=== PATIENT | female | born 1950 | race African-American/Black ===

== ENCOUNTER 2020-03-01 09:30 | Observation (INO) | payer MEDICARE ==
--- NOTE | 2020-03-01 09:47 | ED ---
Chest Pain HPI - General Chief Complaint: Chest Pain Stated Complaint: Chest Pain Time Seen by Provider: 03/01/20 09:35 Source: patient, EMS Mode of arrival: EMS Limitations: no limitations - History of Present Illness Initial Comments: This is a 70-year-old female presents emergency department via EMS chief complaint of bilateral shoulder pain. Patient states that this was a sudden onset of pain. Patient states that she took nitro which immediately alleviated her symptoms. She states his exact symptoms that she had when she had her prior cardiac issues. Patient states at this time she has been placed in 2008. Patient does admit that she is currently being treated for lung cancer on chemo and radiation. Patient also is taking Coumadin because she had a prior clot causing loss of her kidney. Patient denies any diaphoretic episodes, increased redness breath, nausea vomiting no leg pain or leg swelling no swelling of her upper extremities. Patient currently symptom-free. She was given aspirin by EMS. - Related Data Allergies Allergy/AdvReac Type Severity Reaction Status Date / Time ciprofloxacin [From Cipro] Allergy Swelling Verified 03/01/20 10:54 levofloxacin [From Levaquin] Allergy Swelling Verified 03/01/20 10:54 codeine AdvReac Nausea & Verified 03/01/20 10:54 Vomiting lisinopril AdvReac Cough Verified 03/01/20 10:54 Review of Systems ROS Statement: Those systems with pertinent positive or pertinent negative responses have been documented in the HPI. ROS Other: All systems not noted in ROS Statement are negative. EKG Findings - EKG Comments: EKG Findings:: EKG performed at 10:00 normal sinus rhythm rate of 66 MI 146 QRS 70 QT/QTC 430/459 Past Medical History Past Medical History: Coronary Artery Disease (CAD), Cancer, COPD, Hyperlipidemia, Hypertension Additional Past Medical History / Comment(s): lung CA on chemo and radiation History of Any Multi-Drug Resistant Organisms: None Reported Past Surgical History: Appendectomy, Cholecystectomy, Heart Catheterization With Stent, Hysterectomy, Tonsillectomy Past Psychological History: Anxiety, Depression Smoking Status: Current every day smoker Past Alcohol Use History: None Reported Past Drug Use History: None Reported General Exam Limitations: no limitations General appearance: alert, in no apparent distress Head exam: Present: atraumatic, normocephalic, normal inspection Eye exam: Present: normal appearance, PERRL, EOMI. Absent: scleral icterus, conjunctival injection, periorbital swelling ENT exam: Present: normal exam, normal oropharynx, mucous membranes moist Neck exam: Present: normal inspection, full ROM. Absent: tenderness, meningismus, lymphadenopathy Respiratory exam: Present: normal lung sounds bilaterally. Absent: respiratory distress, wheezes, rales, rhonchi, stridor Cardiovascular Exam: Present: regular rate, normal rhythm, normal heart sounds. Absent: systolic murmur, diastolic murmur, rubs, gallop, clicks GI/Abdominal exam: Present: soft, normal bowel sounds. Absent: distended, tenderness, guarding, rebound, rigid Neurological exam: Present: alert, oriented X3 Skin exam: Present: warm, dry, intact, normal color. Absent: rash Course Vital Signs 03/01/20 09:31 Temperature 98.2 F Pulse Rate 68 Respiratory 22 Rate Blood Pressure 142/61 O2 Sat by Pulse 97 Oximetry Chest Pain MDM - MDM 70-year-old presented for chest pain workup at this time is negative INR is 2.0 patient is on Coumadin. Patient will be admitted for cardiac history is a significant cardiac history. Disposition Clinical Impression: Anginal equivalent Disposition: ADMITTED IP TO THIS HOSP Condition: Fair Referrals: Nonstaff,Physician [REFERRING] - 1-2 days
[2020-03-01 10:02] LABS: HCT 34.1 % (34.0-46.0); HGB 11.5 gm/dL (11.4-16.0); MCH 29.1 pg (25.0-35.0); MCHC 33.8 g/dL (31.0-37.0); MCV 86.1 fL (80.0-100.0); Mean Platelet Volume 8.5; Platelet Count 117 k/uL (150-450); RBC 3.96 m/uL (3.80-5.40); RDW 12.9 % (11.5-15.5); WBC 3.6 k/uL (3.8-10.6)
[2020-03-01 10:26] LABS: Prothrombin Time 29.2 sec (9.0-12.0)
[2020-03-01 10:27] LABS: Albumin 3.9 g/dL (3.5-5.0); Magnesium 1.8 mg/dL (1.6-2.3); Potassium 4.5 mmol/L (3.5-5.1); Total Bilirubin 0.4 mg/dL (0.2-1.3); Total Protein 6.7 g/dL (6.3-8.2)
--- NOTE | 2020-03-01 10:28 | XR ---
EXAMINATION TYPE: XR chest 2V DATE OF EXAM: 03/01/2020 COMPARISON: NONE HISTORY: Shortness of breath TECHNIQUE: Frontal and lateral views of the chest are obtained. FINDINGS: Scattered senescent parenchymal changes noted. Hyperinflation compatible with COPD. No evidence for infiltrate. No evidence for atelectasis. Heart size is stable. Mediastinal structures are stable and grossly unremarkable. No evidence for hilar prominence. Degenerative changes dorsal spine. IMPRESSION: 1. No evidence for acute pulmonary disease.
[2020-03-01 10:36] LABS: Band Neutrophils % 5 %; Eosinophils # (M) 0.11 k/uL (0-0.7); Lymphocytes # (M) 1.26 k/uL (1.0-4.8); Metamyelocytes # (M) 0.11 k/uL (0); Metamyelocytes % 3 %; Myelocytes # (M) 0.07 k/uL (0); Myelocytes % 2 %; Neutrophils % (M) 29 %; Nucleated Red Blood Cells 0 /100 WBC (0-0); Total Cells Counted 200
[2020-03-01] MEDS ORDERED: NITROGLYCERIN SL TABS 0.4 MG TAB SUBLINGUAL PRN (11:11)
[2020-03-01] MEDS ORDERED: HYDROcodone/APAP 7.5-325MG 1 EACH TAB PO PRN (13:34)
[2020-03-01] MEDS ORDERED: ALPRAZolam 0.25 MG TAB PO PRN (13:34)
--- NOTE | 2020-03-01 14:02 | P.CRDCN ---
History of Present Illness History of present illness: HISTORY OF PRESENTING ILLNESS This is a pleasant 70-year-old female past medical history significant for coronary artery disease status post PCI in 2008, COPD, dyslipidemia, hypert ension, paroxysmal atrial fibrillation on coumadin and recent diagnosis of lung cancer on chemo and radiation. She unfortunately continues to smoke. She follows in the office with Dr. Barriga. We have been asked to see in consultation for chest pain. She states she woke up this morning in her usual state of health. She got dressed, poured herself a cup of coffee and went on the porch to smoke a cigarette. While she was sitting and she had an acute onset of bilateral arm pain. She states it felt like both forearms were in a vice dance critic. There was no radiation to the chest, back, neck or jaw. Was not associated with shortness of breath, dizziness, nausea, vomiting, diaphoresis or palpitations. She took one sublingual nitroglycerin and her symptoms improved. She has had no further symptoms since that time. She states this is how she felt in 2008 when she needed a stent. At that time she underwent a stress test that was found to be abnormal and subsequently heart catheterization. She recently was diagnosed with lung cancer and has been started on chemo and radiation for the previous 3 weeks. DIAGNOSTICS EKG reveals sinus mechanism with flattened T waves inferiorly. Chest xray negative for acute cardiopulmonary process. Laboratory reviewed, WBC 3.6, hemoglobin 11.5, platelets 117, INR 3.0, sodium 136, potassium 4.5, creatinine 0.79, cardiac enzymes negative 2, NT proBNP 390. Current cardiac medications include atorvastatin 40 mg Lopid 600 mg twice a day, losartan 25 mg daily, amlodipine 5 mg daily and Coumadin. REVIEW OF SYSTEMS At the time of my exam: CONSTITUTIONAL: Denies fever or chills. CARDIOVASCULAR: Denies chest pain, shortness of breath, orthopnea, PND or palpitations. RESPIRATORY: Denies cough. GASTROINTESTINAL: Denies abdominal pain, diarrhea, constipation, nausea or vomiting. MUSCULOSKELETAL: Denies myalgias. NEUROLOGIC: Denies numbness, tingling or weakness. ENDOCRINE: Denies fatigue, weight change, polydipsia or polyurina. GENITOURINARY: Denies burning, hematuria or urgency with micturation. HEMATOLOGIC: Denies history of anemia or bleeding. PHYSICAL EXAMINATION Blood pressure 140/66 heart rate 65 afebrile and maintaining oxygen saturation on room air. CONSTITUTIONAL: No apparent distress. HEENT: Head is normocephalic. Pupils are equal, round. Sclerae anicteric. Mucous membranes of the mouth are moist. No JVD. No carotid bruit. CHEST EXAMINATION: Lungs are clear to auscultation. No chest wall tenderness is noted on palpation or with deep breathing. HEART EXAMINATION: Regular rate and rhythm. S1, S2 heard. Systolic ejection m urmur at the left sternal border, no gallops or rub. ABDOMEN: Soft, nontender. Positive bowel sounds. EXTREMITIES: 2+ peripheral pulses, no lower extremity edema and no calf tenderness. NEUROLOGIC EXAMINATION: Patient is awake, alert and oriented x3. ASSESSMENT Chest pain, atypical for angina. Coronary artery disease status post PCI in 2008 Paroxysmal atrial fibrillation on long-term anticoagulation with Coumadin Lung cancer currently undergoing chemo and radiation Dyslipidemia Hypertension Chronic nicotine dependence PLAN Continue to obtain serial enzymes to rule out an acute event. Obtain 2-D echocardiogram and Doppler study to assess cardiac structure and function. Request records from her primary airline ticket agent of her previous cardiac catheterization. Further recommendations to follow based upon clinical course. Thank you kindly for this consultation. Nurse Practitioner note has been reviewed, I agree with a documented findings and plan of care. Patient was seen and examined. Past Medical History Past Medical History: Coronary Artery Disease (CAD), Cancer, COPD, Hyperlipidemia, Hypertension Additional Past Medical History / Comment(s): lung CA on chemo and radiation History of Any Multi-Drug Resistant Organisms: None Reported Past Surgical History: Appendectomy, Cholecystectomy, Heart Catheterization With Stent, Hysterectomy, Tonsillectomy Past Psychological History: Anxiety, Depression Smoking Status: Current every day smoker Past Alcohol Use History: None Reported Past Drug Use History: None Reported Medications and Allergies Home Medications Medication Instructions Recorded Confirmed Type ALPRAZolam [Xanax] 0.25 - 0.5 mg PO BID PRN 03/01/20 03/01/20 History Atorvastatin [Lipitor] 40 mg PO DAILY 03/01/20 03/01/20 History FLUoxetine HCL [PROzac] 40 mg PO DAILY 03/01/20 03/01/20 History Famotidine [Pepcid] 20 mg PO BID 03/01/20 03/01/20 History Gemfibrozil [Lopid] 600 mg PO BID 03/01/20 03/01/20 History Hydrocodone/Acetaminophen [[place] 1 tab PO Q6HR PRN 03/01/20 03/01/20 History 7.5-325] Losartan Potassium [Cozaar] 25 mg PO DAILY 03/01/20 03/01/20 History Pantoprazole Sodium [Protonix] 40 mg PO DAILY 03/01/20 03/01/20 History Sulfamethoxazole/Trimethoprim 1 tab PO Q12H 03/01/20 03/01/20 History [Bactrim DS 800-160 mg] Warfarin [Coumadin] 5 - 7.5 mg PO DIRECTED 03/01/20 03/01/20 History amLODIPine [Norvasc] 5 mg PO DAILY 03/01/20 03/01/20 History Allergies Allergy/AdvReac Type Severity Reaction Status Date / Time ciprofloxacin [From Cipro] Allergy Swelling Verified 03/01/20 10:54 levofloxacin [From Levaquin] Allergy Swelling Verified 03/01/20 10:54 codeine AdvReac Nausea & Verified 03/01/20 10:54 Vomiting lisinopril AdvReac Cough Verified 03/01/20 10:54 Physical Exam Vitals: Vital Signs Temp Pulse Resp BP Pulse Ox 03/01/20 12:47 65 18 140/66 97 03/01/20 11:00 62 18 134/65 97 03/01/20 10:30 66 20 138/68 03/01/20 10:00 18 142/61 97 03/01/20 09:31 98.2 F 68 22 142/61 97 Intake and Output 02/29/20 03/01/20 03/01/20 22:59 06:59 14:59 Other: Weight 74.843 kg Results 03/01/20 09:52 03/01/20 09:52 Cardiac Enzymes 03/01/20 03/01/20 03/01/20 Range/Units 09:52 09:52 12:06 AST 30 (14-36) U/L Troponin I <0.012 <0.012 (0.000-0.034) ng/mL Coagulation 03/01/20 Range/Units 09:52 PT 29.2 H (9.0-12.0) sec APTT 36.0 H (22.0-30.0) sec CBC 03/01/20 Range/Units 09:52 WBC 3.6 L (3.8-10.6) k/uL RBC 3.96 (3.80-5.40) m/uL Hgb 11.5 (11.4-16.0) gm/dL Hct 34.1 (34.0-46.0) % Plt Count 117 L (150-450) k/uL Comprehensive Metabolic Panel 03/01/20 Range/Units 09:52 Sodium 136 L (137-145) mmol/L Potassium 4.5 (3.5-5.1) mmol/L Chloride 107 (98-107) mmol/L Carbon Dioxide 20 L (22-30) mmol/L BUN 11 (7-17) mg/dL Creatinine 0.79 (0.52-1.04) mg/dL Glucose 115 H (74-99) mg/dL Calcium 9.0 (8.4-10.2) mg/dL AST 30 (14-36) U/L ALT 16 (4-34) U/L Alkaline Phosphatase 83 (38-126) U/L Total Protein 6.7 (6.3-8.2) g/dL Albumin 3.9 (3.5-5.0) g/dL Current Medications Generic Name Dose Route Start Last Admin Trade Name Freq PRN Reason Stop Dose Admin Hydrocodone Bitart/Acetaminophen 1 each 03/01/20 13:34 [place] 7.5-325 PO Q6HR PRN Pain Alprazolam 0.25 mg 03/01/20 13:34 Xanax PO BID PRN Anxiety Amlodipine Besylate 5 mg 03/02/20 09:00 Norvasc PO DAILY [facility] Aspirin 325 mg 03/02/20 09:00 Aspirin PO DAILY [facility] Atorvastatin Calcium 40 mg 03/02/20 09:00 Lipitor PO DAILY [facility] Famotidine 20 mg 03/01/20 21:00 Pepcid PO BID [facility] Fluoxetine HCl 40 mg 03/02/20 09:00 Prozac PO DAILY [facility] Losartan Potassium 25 mg 03/02/20 09:00 Cozaar PO DAILY [facility] Nitroglycerin 0.4 mg 03/01/20 11:11 Nitrostat SUBLINGUAL Q5M PRN Chest Pain Non-Formulary Medication 600 mg 03/01/20 21:00 Gemfibrozil PO BID [facility] Pantoprazole Sodium 40 mg 03/02/20 07:30 Protonix PO AC-BRKFST MEREDITH Intake and Output 02/29/20 03/01/20 03/01/20 22:59 06:59 14:59 Other: Weight 74.843 kg Patient Weight 03/02/20 06:59 Weight 74.843 kg 03/01/20 09:52 03/01/20 09:52
--- NOTE | 2020-03-01 15:21 | P.HPIM ---
History of Present Illness Patient is pleasant 70-year-old the female with known history of coronary artery disease and stenting in 2008 came in with compensable bilateral shoulder pain patient is similar pain when she had stents. Patient pain is constant non radiating pressure-like sensation, no associated diaphoresis or shortness of breath lightheadedness patient's pain is nonpleuritic not associated with food. Patient denied any short and the shortness of breath orthopnea paroxysmal nocturnal dyspnea. Patient INR is 3, patient says she is on Coumadin for blood clots. Patient was recently diagnosed with lung cancer haven't started on chemoradiation therapy yet. Patient the had history of atrial fibrillation. Troponins are negative EKG showed some nonspecific flattening of her T waves. Review of Systems REVIEW OF SYSTEMS: CONSTITUTIONAL: No fever, no malaise, no fatigue. HEENT: No recent visual problems or hearing problems. Denied any sore throat. CARDIOVASCULAR: No orthopnea, PND, no palpitations, no syncope. PULMONARY: No shortness of breath, no cough, no hemoptysis. GASTROINTESTINAL: No diarrhea, no nausea, no vomiting, no abdominal pain. NEUROLOGICAL: No headaches, no weakness, no numbness. HEMATOLOGICAL: Denies any bleeding or petechiae. GENITOURINARY: Denies any burning micturition, frequency, or urgency. MUSCULOSKELETAL/RHEUMATOLOGICAL: Denies any joint pain, swelling, or any muscle pain. ENDOCRINE: Denies any polyuria or polydipsia. The rest of the 14-point review of systems is negative. Past Medical History Past Medical History: Coronary Artery Disease (CAD), Cancer, COPD, Hyperlipidemia, Hypertension Additional Past Medical History / Comment(s): lung CA on chemo and radiation History of Any Multi-Drug Resistant Organisms: None Reported Past Surgical History: Appendectomy, Cholecystectomy, Heart Catheterization With Stent, Hysterectomy, Tonsillectomy Date of Last Stent Placement:: 2008 Past Psychological History: Anxiety, Depression Smoking Status: Current every day smoker Past Alcohol Use History: None Reported Past Drug Use History: None Reported Medications and Allergies Home Medications Medication Instructions Recorded Confirmed Type ALPRAZolam [Xanax] 0.25 - 0.5 mg PO BID PRN 03/01/20 03/01/20 History Atorvastatin [Lipitor] 40 mg PO DAILY 03/01/20 03/01/20 History FLUoxetine HCL [PROzac] 40 mg PO DAILY 03/01/20 03/01/20 History Famotidine [Pepcid] 20 mg PO BID 03/01/20 03/01/20 History Gemfibrozil [Lopid] 600 mg PO BID 03/01/20 03/01/20 History Hydrocodone/Acetaminophen [[place] 1 tab PO Q6HR PRN 03/01/20 03/01/20 History 7.5-325] Losartan Potassium [Cozaar] 25 mg PO DAILY 03/01/20 03/01/20 History Pantoprazole Sodium [Protonix] 40 mg PO DAILY 03/01/20 03/01/20 History Sulfamethoxazole/Trimethoprim 1 tab PO Q12H 03/01/20 03/01/20 History [Bactrim DS 800-160 mg] Warfarin [Coumadin] 5 - 7.5 mg PO DIRECTED 03/01/20 03/01/20 History amLODIPine [Norvasc] 5 mg PO DAILY 03/01/20 03/01/20 History Allergies Allergy/AdvReac Type Severity Reaction Status Date / Time ciprofloxacin [From Cipro] Allergy Swelling Verified 03/01/20 10:54 levofloxacin [From Levaquin] Allergy Swelling Verified 03/01/20 10:54 codeine AdvReac Nausea & Verified 03/01/20 10:54 Vomiting lisinopril AdvReac Cough Verified 03/01/20 10:54 Physical Exam Vitals: Vital Signs Temp Pulse Pulse Resp BP BP Pulse Ox 03/01/20 13:33 98.1 F 63 16 164/63 97 03/01/20 12:47 65 18 140/66 97 03/01/20 11:00 62 18 134/65 97 03/01/20 10:30 66 20 138/68 03/01/20 10:00 18 142/61 97 03/01/20 09:31 98.2 F 68 22 142/61 97 Intake and Output 03/01/20 03/01/20 03/01/20 06:59 14:59 22:59 Other: Weight 74.843 kg PHYSICAL EXAMINATION: GENERAL: The patient is alert and oriented x3, not in any acute distress. Well developed, well nourished. HEENT: Pupils are round and equally reacting to light. EOMI. No scleral icterus. No conjunctival pallor. Normocephalic, atraumatic. No pharyngeal erythema. No thyromegaly. CARDIOVASCULAR: S1 and S2 present. No murmurs, rubs, or gallops. PULMONARY: Chest is clear to auscultation, no wheezing or crackles. ABDOMEN: Soft, nontender, nondistended, normoactive bowel sounds. No palpable organomegaly. MUSCULOSKELETAL: No joint swelling or deformity. EXTREMITIES: No cyanosis, clubbing, or pedal edema. NEUROLOGICAL: Gross neurological examination did not reveal any focal deficits. SKIN: No rashes. Results CBC & Chem 7: 03/01/20 09:52 03/01/20 09:52 Labs: Abnormal Lab Results - Last 24 Hours (Table) 03/01/20 03/01/20 03/01/20 Range/Units 09:52 09:52 09:52 WBC 3.6 L (3.8-10.6) k/uL Plt Count 117 L (150-450) k/uL Neutrophils # (Manual) 1.20 L (1.3-7.7) k/uL Metamyelocytes # (Man) 0.11 H (0) k/uL Myelocytes # (Manual) 0.07 H (0) k/uL PT 29.2 H (9.0-12.0) sec INR 3.0 H (<1.2) APTT 36.0 H (22.0-30.0) sec Sodium 136 L (137-145) mmol/L Carbon Dioxide 20 L (22-30) mmol/L Glucose 115 H (74-99) mg/dL Thrombosis Risk Factor Assmnt - Choose All That Apply Each Factor Represents 1 point: Abnormal pulmonary function (COPD), Obesity (BMI >25), Serious lung disease incl. pneumonia (< 1month) Other Risk Factors: Yes Each Risk Factor Represents 2 Points: Age 61-74 years, Malignancy Thrombosis Risk Factor Assessment Total Risk Factor Score: 7 Thrombosis Risk Factor Assessment Level: High Risk Assessment and Plan Plan: -Bilateral shoulder pain/chest pain: We'll rule out acute coronary syndromes with 2 more sets of troponins and EKGs. Patient will be evaluated by cardiology patient may need a stress test depending on the other troponins -Coronary artery disease with PCI in 2008 -Continued nicotine dependence: Counseling was provided -COPD without any acute exacerbation #Hypertension Hyperlipidemia -Lung cancer recently diagnosed, was not started on chemotherapy or radiation therapy at [facility]
--- NOTE | 2020-03-01 18:00 | ECHOF ---
Referral Reason:cp MEASUREMENTS -------- HEIGHT: 154.9 cm WEIGHT: 74.8 kg BP: 140/66 RVIDd: 3.0 cm (< 3.3) IVSd: 1.4 cm (0.6 - 1.1) LVIDd: 3.8 cm (3.9 - 5.3) LVPWd: 1.6 cm (0.6 - 1.1) IVSs: 1.6 cm LVIDs: 2.7 cm LVPWs: 1.6 cm LAESV Index (A-L): 44.29 ml/m Ao Diam: 3.1 cm (2.0 - 3.7) AV Cusp: 1.7 cm (1.5 - 2.6) MV EXCURSION: 21.757 mm (> 18.000) MV EF SLOPE: 107 mm/s (70 - 150) EPSS: 0.7 cm MV E Agusto: 0.64 m/s MV DecT: 273 ms MV A Agusto: 0.89 m/s MV E/A Ratio: 0.72 AR PHT: 382 ms RAP: 5.00 mmHg RVSP: 43.76 mmHg FINDINGS -------- Sinus rhythm. This was a technically adequate study. The left ventricular size is normal. There is moderate concentric left ventricular hypertrophy. O verall left ventricular systolic function is normal with, an EF between 55 - 60 %. The diastolic fi lling pattern is normal for the age of the patient 8.41. The right ventricle is normal in size. LA is severely dilated >40 ml/m2 The right atrium is mildly enlarged. Interatrial and interventricular septum intact. The aortic valve is trileaflet and appears structurally normal. There is mild aortic regurgitation. The mitral valve is normal. [id number] mitral regurgitation is present. [id number] tricuspid regurgitation present. There is mild pulmonary hypertension. The right ventricular systolic pressure, as measured by Doppler, is 43.76mmHg. There is no pulmonic regurgitation present. The aortic root size is normal. IVC Not well visulized. There is no pericardial effusion. CONCLUSIONS -------- 1. There is moderate concentric left ventricular hypertrophy. 2. Overall left ventricular systolic function is normal with, an EF between 55 - 60 %. 3. The diastolic filling pattern is normal for the age of the patient 8.41 4. LA is severely dilated >40 ml/m2 5. The right atrium is mildly enlarged. 6. There is mild aortic regurgitation. 7. Ofva-[id number] mitral regurgitation is present. 8. Yuhx-hp-[id number] tricuspid regurgitation present. 9. There is mild pulmonary hypertension. COMMISSIONING ENGINEER: Janet Tellez RDCS
[2020-03-01] MEDS ORDERED: FAMOTIDINE 20 MG TAB PO SCH (21:00)
[2020-03-02 06:25] LABS: Prothrombin Time 19.8 sec (9.0-12.0)
[2020-03-02 06:29] LABS: Cholesterol 148 mg/dL (<200); HDL Cholesterol 41 mg/dL (40-60); LDL Cholesterol,Calculated 68 mg/dL (0-99); Triglycerides 193 mg/dL (<150)
[2020-03-02] MEDS ORDERED: PANTOPRAZOLE 40 MG TABLET PO SCH (07:30)
[2020-03-02 08:21] VITALS: BP 132/67; PULSE 66; RESP 12; TEMP 98
[2020-03-02] MEDS ORDERED: amLODIPine 5 MG TAB PO SCH (09:00)
[2020-03-02] MEDS ORDERED: LOSARTAN 25 MG TAB PO SCH (09:00)
[2020-03-02] MEDS ORDERED: ASPIRIN 325 MG TAB PO SCH (09:00)
[2020-03-02] MEDS ORDERED: ATORVASTATIN 40 MG TAB PO SCH (09:00)
[2020-03-02] MEDS ORDERED: FENOFIBRATE 160 MG TAB PO SCH (09:00)
[2020-03-02] MEDS ORDERED: FLUoxetine HCL 20 MG CAP PO SCH (09:00)
--- NOTE | 2020-03-02 09:35 | P.DS ---
Providers Date of admission: 03/01/20 11:11 Attending physician: Adele Alfaro Consults: 03/01/20 11:11 Consult Physician Urgent Consulting Provider: Thierry Gonzalez Reason/Comments: chest pain Do you want consulting provider notified?: Yes Primary care physician: [facility] Course: 70-year-old the female with known history of coronary artery disease and stenting in 2008 came in with compensable bilateral shoulder pain patient is similar pain when she had stents. Patient pain is constant nonradiating pressure-like sensation, no associated diaphoresis or shortness of breath li ghtheadedness patient's pain is nonpleuritic not associated with food. Patient denied any short and the shortness of breath orthopnea paroxysmal nocturnal dyspnea. Patient INR is 3, patient says she is on Coumadin for blood clots. Patient was recently diagnosed with lung cancer haven't started on chemoradiation therapy yet. Patient the had history of atrial fibrillation. Troponins are negative EKG showed some nonspecific flattening of her T waves. 03/02/2020 Patient had 3 sets of troponins which were negative. Patient shoulder pain completely resolved patient is urgent to go home. Patient probably will need a stress test as an outpatient if cleared by cardiology patient will be discharged today. Patient's INR is 2 she didn't receive her Coumadin last night. PHYSICAL EXAMINATION: GENERAL: The patient is alert and oriented x3, not in any acute distress. Well developed, well nourished. HEENT: Pupils are round and equally reacting to light. EOMI. No scleral icterus. No conjunctival pallor. Normocephalic, atraumatic. No pharyngeal erythema. No thyromegaly. CARDIOVASCULAR: S1 and S2 present. No murmurs, rubs, or gallops. PULMONARY: Chest is clear to auscultation, no wheezing or crackles. ABDOMEN: Soft, nontender, nondistended, normoactive bowel sounds. No palpable organomegaly. MUSCULOSKELETAL: No joint swelling or deformity. EXTREMITIES: No cyanosis, clubbing, or pedal edema. NEUROLOGICAL: Gross neurological examination did not reveal any focal deficits. SKIN: No rashes. Assessment and Plan Plan: -Bilateral shoulder pain/chest pain: ruled out acute coronary syndromes -Coronary artery disease with PCI in 2008 -Continued nicotine dependence: Counseling was provided -COPD without any acute exacerbation #Hypertension Hyperlipidemia -Lung cancer recently diagnosed, was not started on chemotherapy or radiation therapy at -Depression Patient Condition at Discharge: Fair Plan - Discharge Summary Discharge Rx Participant: No New Discharge Prescriptions: Continue Warfarin [Coumadin] 5 - 7.5 mg PO DIRECTED Hydrocodone/Acetaminophen [[place] 7.5-325] 1 tab PO Q6HR PRN PRN Reason: Pain Famotidine [Pepcid] 20 mg PO BID FLUoxetine HCL [PROzac] 40 mg PO DAILY amLODIPine [Norvasc] 5 mg PO DAILY Pantoprazole Sodium [Protonix] 40 mg PO DAILY Losartan Potassium [Cozaar] 25 mg PO DAILY Gemfibrozil [Lopid] 600 mg PO BID Atorvastatin [Lipitor] 40 mg PO DAILY ALPRAZolam [Xanax] 0.25 - 0.5 mg PO BID PRN PRN Reason: Anxiety Discontinued Sulfamethoxazole/Trimethoprim [Bactrim DS 800-160 mg] 1 tab PO Q12H Discharge Medication List ALPRAZolam [Xanax] 0.25 - 0.5 mg PO BID PRN 03/01/20 [History] Atorvastatin [Lipitor] 40 mg PO DAILY 03/01/20 [History] FLUoxetine HCL [PROzac] 40 mg PO DAILY 03/01/20 [History] Famotidine [Pepcid] 20 mg PO BID 03/01/20 [History] Gemfibrozil [Lopid] 600 mg PO BID 03/01/20 [History] Hydrocodone/Acetaminophen [[place] 7.5-325] 1 tab PO Q6HR PRN 03/01/20 [History] Losartan Potassium [Cozaar] 25 mg PO DAILY 03/01/20 [History] Pantoprazole Sodium [Protonix] 40 mg PO DAILY 03/01/20 [History] Warfarin [Coumadin] 5 - 7.5 mg PO DIRECTED 03/01/20 [History] amLODIPine [Norvasc] 5 mg PO DAILY 03/01/20 [History] Follow up Appointment(s)/Referral(s): Nonstaff,Physician [REFERRING] - 3 Days Discharge Disposition: HOME SELF-CARE
== END 2020-03-02 11:25 | disposition home or self-care (01) ==
LOC: EC 09:30 → 3NCARDOBS 11:11 → INTOOBSV 12:20 → OBSVTOIN 12:20 → UNDODISIN 03-02 11:25
PROVIDERS: ADMIT Internal Medicine; ATTEND Internal Medicine
DX: R07.89 Other chest pain (principal); C34.90 Malignant neoplasm of unspecified part of unspecified bronchus or lung; M25.512 Pain in left shoulder; M25.511 Pain in right shoulder; I25.10 Atherosclerotic heart disease of native coronary artery without angina pectoris; I10 Essential (primary) hypertension; E78.5 Hyperlipidemia, unspecified; J44.9 Chronic obstructive pulmonary disease, unspecified; F41.9 Anxiety disorder, unspecified; F32.9 Major depressive disorder, single episode, unspecified; I48.0 Paroxysmal atrial fibrillation; F17.210 Nicotine dependence, cigarettes, uncomplicated; E66.9 Obesity, unspecified; Z68.31 Body mass index [BMI] 31.0-31.9, adult; Z20.828 Contact with and (suspected) exposure to other viral communicable diseases; Z90.49 Acquired absence of other specified parts of digestive tract; Z90.710 Acquired absence of both cervix and uterus; Z95.5 Presence of coronary angioplasty implant and graft; Z79.01 Long term (current) use of anticoagulants; Z79.899 Other long term (current) drug therapy; Z79.891 Long term (current) use of opiate analgesic; Z88.1 Allergy status to other antibiotic agents; Z88.5 Allergy status to narcotic agent; Z88.8 Allergy status to other drugs, medicaments and biological substances; Z87.01 Personal history of pneumonia (recurrent)
CPT/HCPCS: 93005 ×2; 99285; 36415; 93306; 83880; 80061; 80053; 83690; 83735; 84484; 85025; 85610 ×2; 85730; 71046; G0378 ×2; U0003

== ENCOUNTER 2020-10-14 14:52 | Inpatient (IN) | payer MEDICARE ==
[2020-10-14] MEDS ORDERED: SODIUM CHLORIDE 0.9% 1,000 ML IV STA (15:39)
[2020-10-14] MEDS ORDERED: MORPHINE SULFATE 4 MG/ML SYRINGE IV STA (15:41)
[2020-10-14 15:57] LABS: Basophils # (A) 0.1 k/uL (0-0.2); Basophils % (A) 1 %; Eosinophils # (A) 0.3 k/uL (0-0.7); Eosinophils % (A) 6 %; HGB 12.5 gm/dL (11.4-16.0); Lymphocytes # (A) 1.1 k/uL (1.0-4.8); Lymphocytes % (A) 21 %; MCH 31.5 pg (25.0-35.0); MCHC 34.7 g/dL (31.0-37.0); Mean Platelet Volume 7.5; Monocytes # (A) 0.4 k/uL (0-1.0); Monocytes % (A) 8 %; Neutrophils # (A) 3.2 k/uL (1.3-7.7); Neutrophils % (A) 60 %; Platelet Count 209 k/uL (150-450); RBC 3.96 m/uL (3.80-5.40); RDW 13.3 % (11.5-15.5); WBC 5.3 k/uL (3.8-10.6)
--- NOTE | 2020-10-14 15:57 | ED ---
Weakness HPI - General Chief complaint: Weakness Stated complaint: weakness Time Seen by Provider: 10/14/20 15:26 Source: EMS Mode of arrival: ambulatory Limitations: no limitations, language barrier - History of Present Illness Initial comments: This 70-year-old female presents complaining of some bilateral low back and pelvis pain radiating into her groin. This is to her upper and lower back. She also has pain radiating into her bilateral upper arms. This is associated with generalized weakness. It seems to be progressing over the last 2+ weeks. It got to the point today that she was unable to ambulate. She relates that she was seen a couple of weeks ago in the late [facility] ER and they told her that she may have a virus. Her symptoms have progressed since then. She apparently was put on a muscle relaxer as well as [employer] with limited relief. She also states that she has had loss of urine and loss of stool over the past week. She has loss of sensation in her perineal region. She further relates a history of lung cancer this past year and underwent radiation and chemotherapy which apparently ended in April 2020. She had been seeing an oncologist on [address] [place] [address] and [facility] in [facility]. She denies any fevers or chills. There is no shortness of breath or difficulty in breathing. No other complaints or modifying factors. - Related Data Home Medications Medication Instructions Recorded Confirmed ALPRAZolam [Xanax] 0.25 - 0.5 mg PO BID PRN 03/01/20 10/14/20 Atorvastatin [Lipitor] 40 mg PO DAILY 03/01/20 10/14/20 FLUoxetine HCL [PROzac] 40 mg PO DAILY 03/01/20 10/14/20 Famotidine [Pepcid] 20 mg PO BID 03/01/20 10/14/20 Losartan Potassium [Cozaar] 25 mg PO DAILY 03/01/20 10/14/20 Pantoprazole Sodium [Protonix] 40 mg PO DAILY 03/01/20 10/14/20 Warfarin [Coumadin] 5 - 10 mg PO DIRECTED 03/01/20 10/14/20 amLODIPine [Norvasc] 5 mg PO DAILY 03/01/20 10/14/20 gemfibroziL [Lopid] 600 mg PO BID 03/01/20 10/14/20 HYDROcodone/APAP 5-325MG [[employer] 1 tab PO TID PRN 10/14/20 10/14/20 5-325] Methocarbamol [Robaxin-750] 750 mg PO Q6H PRN 10/14/20 10/14/20 Allergies Allergy/AdvReac Type Severity Reaction Status Date / Time ciprofloxacin [From Cipro] Allergy Anaphylaxis Verified 10/14/20 17:30 levofloxacin [From Levaquin] Allergy Anaphylaxis Verified 10/14/20 17:30 codeine AdvReac Nausea & Verified 10/14/20 17:30 Vomiting lisinopril AdvReac Anaphylaxis Verified 10/14/20 17:30 Review of Systems ROS Statement: Those systems with pertinent positive or pertinent negative responses have been documented in the HPI. ROS Other: All systems not noted in ROS Statement are negative. Past Medical History Past Medical History: Coronary Artery Disease (CAD), Cancer, COPD, Hyperlipide stew, Hypertension Additional Past Medical History / Comment(s): lung CA on chemo and radiation History of Any Multi-Drug Resistant Organisms: None Reported Past Surgical History: Appendectomy, Cholecystectomy, Heart Catheterization With Stent, Hysterectomy, Tonsillectomy Date of Last Stent Placement:: 2008 Past Psychological History: Anxiety, Depression Smoking Status: Current every day smoker Past Alcohol Use History: None Reported Past Drug Use History: None Reported General Exam - General Exam Comments Initial Comments: GENERAL: The patient is well nourished and well hydrated. VITAL SIGNS: Heart rate, blood pressure, respiratory rate reviewed as recorded in nurse's notes. EYES: Pupils are round and reactive. Extraocular movements are intact. No conjunctival / lid redness or swelling. ENT: No external evidence of injury, swelling, or ecchymosis. Airway is patent. Throat is clear. Patient is hard of hearing. NECK: Nontender. No swelling or evidence of injury. No subcutaneous emphysema. Trachea is midline. No thyroid mass. HEART: Regular rate and rhythm. Good peripheral pulses. LUNGS/CHEST: Breath sounds clear and equal bilaterally. No rales, rhonchi, or wheezes. No ecchymosis, subcutaneous emphysema, or tenderness. ABDOMEN: Abdomen soft without tenderness. No palpable masses or organomegaly. No peritoneal signs. No abdominal wall swelling or ecchymosis. EXTREMITIES: No extremity tenderness. Normal muscle tone and function. There is tenderness noted diffusely throughout the lumbar and thoracic spine worse in the inferior lumbar spine and into the pelvic region superiorly and posteriorly bilaterally. NEUROLOGIC: Sensation is grossly intact. Cranial nerve exam reveals face is symmetrical, tongue is midline, speech is clear. SKIN: No abrasions or ecchymosis is noted. No induration or masses noted. PSYCHIATRIC: Alert and oriented. Appropriate behavior and judgment. Limitations: no limitations, language barrier Course Vital Signs 10/14/20 10/14/20 14:56 16:28 Temperature 98.3 F Pulse Rate 72 66 Respiratory 18 18 Rate Blood Pressure 134/64 130/81 O2 Sat by Pulse 96 97 Oximetry Medical Decision Making - Medical Decision Making The patient was seen and examined. All diagnostics were reviewed. IV is established and patient is given 4 modems of morphine intravenously. Mild hydration is given. Osei catheter is initiated. EKG shows a normal sinus rhythm at a rate of 71. There is no acute ST-T wave changes identified. The [place] intervals 138, QRS duration is 70, and the QTC intervals 469. The x-ray of the pelvis does not show any acute abnormalities. The chest x-ray does not show an acute process. The CT of the thoracic and lumbar spine also does not show any acute processes but there is evidence of the left lung mass. The family states that this was supposed to be completely resolved. It is difficult to determine if this is still a significant process for her. The possibility of active lung cancer still is certainly plausible. The CT scan shows a central mass with left upper lobe atelectasis. Nevertheless, she still is weak and unable to ambulate. It is felt as though she would require admission for further evaluation. Case is discussed with the internal medicine PA and he is agreeable to admission under Dr. Alfaro. - Lab Data Result diagrams: 10/14/20 15:44 10/14/20 15:44 Lab Results 10/14/20 10/14/20 10/14/20 Range/Units 15:44 15:44 15:44 WBC 5.3 (3.8-10.6) k/uL RBC 3.96 (3.80-5.40) m/uL Hgb 12.5 (11.4-16.0) gm/dL Hct 36.0 (34.0-46.0) % MCV 91.0 (80.0-100.0) fL MCH 31.5 (25.0-35.0) pg MCHC 34.7 (31.0-37.0) g/dL RDW 13.3 (11.5-15.5) % Plt Count 209 (150-450) k/uL MPV 7.5 Neutrophils % 60 % Lymphocytes % 21 % Monocytes % 8 % Eosinophils % 6 % Basophils % 1 % Neutrophils # 3.2 (1.3-7.7) k/uL Lymphocytes # 1.1 (1.0-4.8) k/uL Monocytes # 0.4 (0-1.0) k/uL Eosinophils # 0.3 (0-0.7) k/uL Basophils # 0.1 (0-0.2) k/uL PT 25.6 H (9.0-12.0) sec INR 2.6 H (<1.2) APTT 33.4 H (22.0-30.0) sec Sodium 140 (137-145) mmol/L Potassium 4.2 (3.5-5.1) mmol/L Chloride 105 (98-107) mmol/L Carbon Dioxide 22 (22-30) mmol/L Anion Gap 13 mmol/L BUN 20 H (7-17) mg/dL Creatinine 0.90 (0.52-1.04) mg/dL Est GFR (CKD-EPI)AfAm 74 (>60 ml/min/1.73 sqM) Est GFR (CKD-EPI)NonAf 64 (>60 ml/min/1.73 sqM) Glucose 96 (74-99) mg/dL Calcium 9.2 (8.4-10.2) mg/dL Phosphorus 3.9 (2.5-4.5) mg/dL Magnesium 1.8 (1.6-2.3) mg/dL Total Bilirubin 0.6 (0.2-1.3) mg/dL AST 41 H (14-36) U/L ALT 13 (4-34) U/L Alkaline Phosphatase 97 (38-126) U/L Troponin I (0.000-0.034) ng/mL Total Protein 7.1 (6.3-8.2) g/dL Albumin 4.0 (3.5-5.0) g/dL TSH 2.920 (0.465-4.680) mIU/L Urine Color Urine Appearance (Clear) Urine pH (5.0-8.0) Ur Specific Hazel (1.001-1.035) Urine Protein (Negative) Urine Glucose (UA) (Negative) Urine Ketones (Negative) Urine Blood (Negative) Urine Nitrite (Negative) Urine Bilirubin (Negative) Urine Urobilinogen (<2.0) mg/dL Ur Leukocyte Esterase (Negative) 10/14/20 10/14/20 Range/Units 15:44 16:45 WBC (3.8-10.6) k/uL RBC (3.80-5.40) m/uL Hgb (11.4-16.0) gm/dL Hct (34.0-46.0) % MCV (80.0-100.0) fL MCH (25.0-35.0) pg MCHC (31.0-37.0) g/dL RDW (11.5-15.5) % Plt Count (150-450) k/uL MPV Neutrophils % % Lymphocytes % % Monocytes % % Eosinophils % % Basophils % % Neutrophils # (1.3-7.7) k/uL Lymphocytes # (1.0-4.8) k/uL Monocytes # (0-1.0) k/uL Eosinophils # (0-0.7) k/uL Basophils # (0-0.2) k/uL PT (9.0-12.0) sec INR (<1.2) APTT (22.0-30.0) sec Sodium (137-145) mmol/L Potassium (3.5-5.1) mmol/L Chloride (98-107) mmol/L Carbon Dioxide (22-30) mmol/L Anion Gap mmol/L BUN (7-17) mg/dL Creatinine (0.52-1.04) mg/dL Est GFR (CKD-EPI)AfAm (>60 ml/min/1.73 sqM) Est GFR (CKD-EPI)NonAf (>60 ml/min/1.73 sqM) Glucose (74-99) mg/dL Calcium (8.4-10.2) mg/dL Phosphorus (2.5-4.5) mg/dL Magnesium (1.6-2.3) mg/dL Total Bilirubin (0.2-1.3) mg/dL AST (14-36) U/L ALT (4-34) U/L Alkaline Phosphatase (38-126) U/L Troponin I <0.012 (0.000-0.034) ng/mL Total Protein (6.3-8.2) g/dL Albumin (3.5-5.0) g/dL TSH (0.465-4.680) mIU/L Urine Color Yellow Urine Appearance Clear (Clear) Urine pH 5.5 (5.0-8.0) Ur Specific Hazel 1.014 (1.001-1.035) Urine Protein Negative (Negative) Urine Glucose (UA) Negative (Negative) Urine Ketones Negative (Negative) Urine Blood Negative (Negative) Urine Nitrite Negative (Negative) Urine Bilirubin Negative (Negative) Urine Urobilinogen <2.0 (<2.0) mg/dL Ur Leukocyte Esterase Negative (Negative) Disposition Clinical Impression: Weakness, Inability to walk, Back pain, Pelvic pain, Urinary incontinence, Fecal incontinence, Lung cancer Disposition: ADMITTED IP TO THIS [facility] Condition: Fair Referrals: Randal Leal MD [Primary Care Provider] - 1-2 days Time of Disposition: 18:05 Decision Date: 10/14/20 Decision Time: 18:05
[2020-10-14 16:10] LABS: Calcium 9.2 mg/dL (8.4-10.2); INR 2.6 (<1.2); Magnesium 1.8 mg/dL (1.6-2.3); Partial Thromboplastin Time 33.4 sec (22.0-30.0); Phosphorus 3.9 mg/dL (2.5-4.5); Potassium 4.2 mmol/L (3.5-5.1); Prothrombin Time 25.6 sec (9.0-12.0); Total Bilirubin 0.6 mg/dL (0.2-1.3); Total Protein 7.1 g/dL (6.3-8.2)
--- NOTE | 2020-10-14 16:28 | CT ---
EXAMINATION TYPE: CT thor lumbar spine wo con DATE OF EXAM: 10/14/2020 COMPARISON: None. HISTORY: Pain, loss of bowel control. CT DLP: 1166.6 mGycm Automated exposure control for dose reduction was used. FINDINGS: There are 5 lumbar type vertebra identified. Slight grade 1 anterolisthesis of L3 on L4. Slight scoli otic curvature of the thoracolumbar spine on coronal images. Vertebral body heights are maintained. T here is mild/moderate multilevel anterior lateral spurring greatest in the mid to lower thoracic spin e. Lumbar spine shows vacuum disc phenomenon at multiple levels with fairly mild to moderate disc spa ce narrowing. There is relative sparing of the L2-L3 level. No acute fracture or dislocation is seen. Spinal canal is grossly preserved. Axial images at L3-L4 level show spondylolisthesis with moderate broad-based posterior disc protrusio n and moderate facet degenerative changes bilaterally. There is effacement of the anterior and custom frame assembler ior lateral thecal sac on axial image 130. This is the level of the most prominent spinal canal sten osis. Moderate calcified plaque in the ectatic aorta extends into iliac branch vessels. Partial visualizati on of liver upper limits of normal in size or mildly enlarged. Gallbladder surgically absent. There i s right subclavian Mediport catheter terminating near cavoatrial junction. Emphysematous change with scarlike nodularity in the left lung should be correlated with history, suspect history of left-sided lung cancer. Correlate clinically to determine need for further workup. No prior CTs or PET/CT is at this hospital IMPRESSION: As above. No acute findings evident in the thoracic or lumbar spine.
--- NOTE | 2020-10-14 16:28 | XR ---
EXAMINATION TYPE: XR chest 2V DATE OF EXAM: 10/14/2020 COMPARISON: Chest x-ray 03/01/2020 HISTORY: Weakness, low back pain TECHNIQUE: Frontal and lateral views of the chest are obtained. FINDINGS: There is a port in the right pectoral region, catheter courses via right subclavian approa ch into the superior vena cava terminates at the cavoatrial junction. There is no evident pneumothora x or pleural effusion. Veil-like density is present in the left upper lobe. No evident pneumothorax o r pleural effusion. There is eventration of the hemidiaphragms. Cardiac mediastinal silhouette is wit hin normal limits. Aorta is dense. IMPRESSION: There may be a central mass causing some postobstructive atelectasis in the left upper l obe similar to prior exam, correlate to exclude pneumonia
--- NOTE | 2020-10-14 16:29 | XR ---
AP pelvis HISTORY: Weakness, low back pain Single frontal view of the pelvis Surgical clip present in the right lower quadrant. Bone mineralization, joint spaces and alignment ar e maintained. No fracture or dislocation. Degenerative disc change present in the lower lumbar spine. Vascular calcifications are noted incidentally. IMPRESSION: Degenerative disc disease. Postop change.
[2020-10-14 17:04] LABS: Appearance,Urine Clear (Clear); Bilirubin,Urine Negative (Negative); Blood,Urine Negative (Negative); Color,Urine Yellow; Glucose,Urine (UA) Negative (Negative); Ketones,Urine Negative (Negative); Leukocyte Esterase,Urine Negative (Negative); Nitrite,Urine Negative (Negative); PH, Urine 5.5 (5.0-8.0); Protein,Urine Negative (Negative); Specific Gravity,Urine 1.014 (1.001-1.035); Urobilinogen,Urine <2.0 mg/dL (<2.0)
[2020-10-14] MEDS ORDERED: NALOXONE 0.4 MG/ML 1 ML VIAL IV PRN (18:06)
[2020-10-14] MEDS ORDERED: ONDANSETRON 4 MG/2 ML VIAL IVP PRN (18:06)
[2020-10-14] MEDS ORDERED: ACETAMINOPHEN TAB 325 MG TAB PO PRN (18:06)
[2020-10-14] MEDS ORDERED: HYDROcodone/APAP 5-325MG 1 EACH TAB PO PRN (18:09)
[2020-10-14] MEDS ORDERED: methocarbamoL 750 MG TAB PO PRN (18:09)
[2020-10-14] MEDS ORDERED: ALPRAZolam 0.5 MG TAB PO PRN (18:09)
[2020-10-14] MEDS ORDERED: WARFARIN 5 MG TAB PO ONE (19:00)
[2020-10-14] MEDS: MORPHINE SULFATE 4 MG/ML SYRINGE IV PRN (19:03)
[2020-10-15] MEDS: MORPHINE SULFATE 4 MG/ML SYRINGE IV PRN ×3 (01:47→21:52)
[2020-10-15] MEDS: PANTOPRAZOLE 40 MG TABLET PO SCH (08:29)
[2020-10-15] MEDS: FAMOTIDINE 20 MG TAB PO SCH (08:29)
[2020-10-15] MEDS: ATORVASTATIN 40 MG TAB PO SCH (08:29)
[2020-10-15] MEDS: FLUoxetine HCL 20 MG CAP PO SCH (08:29)
[2020-10-15] MEDS: LOSARTAN 25 MG TAB PO SCH (08:29)
[2020-10-15] MEDS: FENOFIBRATE 160 MG TAB PO SCH (08:29)
[2020-10-15] MEDS: amLODIPine 5 MG TAB PO SCH (08:29)
--- NOTE | 2020-10-15 08:37 | P.CNNES ---
History of Present Illness Consult date: 10/15/20 Requesting physician: Warren Guajardo Reason for Consult: lower extremity weakness History of Present Illness: This is a 70-year-old woman with medical history of coronary artery disease s/p stent, hypertension, hyperlipidemia, left lung cancer status (01/2020) underwent chemo and radiation that presented to the emergency department on the 10/14/2020 for lower extremity weakness. She said she has been having lower extremity weakness for the past one month. She feels her legs is "are like noddles or spagetti" and cramp and give out. She feel it has progressively been getting worse but denies any falls. She noticed she could not ambulate yesterday. She also has been having pain in proximal thighs and pelvic pain in the last couple weeks. She has been having bowel incontinence and feels she has loss sensation of her urine for the past 2-3 months. She reported to the ED that she has lower back pain but for me it was more pelvic and proximal thigh pain. She denies of any paresthesia of lower extremities or paresthesia that started in feet and ascended up. She feels her upper extremity are somewhat weak in last few weeks but not as compared to legs. She denies of visual disturbance, difficulty gett ing her words out, dysphagia. Patient has history of lung cancer and underwent radiation chemotherapy which ended in April 2020. Patient has been seeing an oncologist in [facility] (Ryan whitlock). Patient is also on Coumadin since has history of blood clot (stated she had blood clot in her kidney in the past 2-3 years ago). She denies of history of diabetes. Workup in the hospital consisted of: CT thorax lumbar without contrast is reported as no acute finding evident in the thoracic or lumbar spine. In the body of the report it is reported as slight grade 1 anterior lithiasis of L3 and L4. There is mild to moderate multilevel anterior lateral spurring greater in the mid to lower thoracic spine. Lumbar spine shows vacuum disc phenomenon at multiple level with fairly mild to moderate disc space narrowing. Also there is with scarlike nodularity in the left lung should be correlated with a history, suspected history of left sided lung cancer. Pelvic x-ray is reported as degenerative disc disease at. Postoperative change at. Chest x-ray is reported as there may be central mass causing some postobstructive atelectasis in the left upper lobe similar to prior exam, corre late to exclude pneumonia. White blood cells 5.3 which is normal. Sodium is 140. Potassium 4.2. BUN is 20 and creatinine is 0.9. AST is 41 which is slightly elevated and ALT is 13. TSH is 2.92 which is normal. Calcium is 9.2. Review of Systems Review of system: The 12 point system was reviewed and apparent positive and negative per HPI. Past Medical History Past Medical History: Coronary Artery Disease (CAD), Cancer, COPD, Hyperlipidemia, Hypertension Additional Past Medical History / Comment(s): lung CA on chemo and radiation History of Any Multi-Drug Resistant Organisms: None Reported Past Surgical History: Appendectomy, Cholecystectomy, Heart Catheterization With Stent, Hysterectomy, Tonsillectomy Past Anesthesia/Blood Transfusion Reactions: No Reported Reaction Date of Last Stent Placement:: 2008 Past Psychological History: Anxiety, Depression Smoking Status: Current every day smoker Past Alcohol Use History: None Reported Past Drug Use History: None Reported Medications and Allergies Home Medications Medication Instructions Recorded Confirmed Type ALPRAZolam [Xanax] 0.25 - 0.5 mg PO BID PRN 03/01/20 10/14/20 History Atorvastatin [Lipitor] 40 mg PO DAILY 03/01/20 10/14/20 History FLUoxetine HCL [PROzac] 40 mg PO DAILY 03/01/20 10/14/20 History Famotidine [Pepcid] 20 mg PO BID 03/01/20 10/14/20 History Losartan Potassium [Cozaar] 25 mg PO DAILY 03/01/20 10/14/20 History Pantoprazole Sodium [Protonix] 40 mg PO DAILY 03/01/20 10/14/20 History Warfarin [Coumadin] 5 - 10 mg PO DIRECTED 03/01/20 10/14/20 History amLODIPine [Norvasc] 5 mg PO DAILY 03/01/20 10/14/20 History gemfibroziL [Lopid] 600 mg PO BID 03/01/20 10/14/20 History HYDROcodone/APAP 5-325MG [[place] 1 tab PO TID PRN 10/14/20 10/14/20 History 5-325] Methocarbamol [Robaxin-750] 750 mg PO Q6H PRN 10/14/20 10/14/20 History Allergies Allergy/AdvReac Type Severity Reaction Status Date / Time ciprofloxacin [From Cipro] Allergy Anaphylaxis Verified 10/14/20 17:30 levofloxacin [From Levaquin] Allergy Anaphylaxis Verified 10/14/20 17:30 codeine AdvReac Nausea & Verified 10/14/20 17:30 Vomiting lisinopril AdvReac Anaphylaxis Verified 10/14/20 17:30 Physical Examination - Vital Signs Vital Signs: Vital Signs Temp Pulse Pulse Resp BP BP Pulse Ox 10/15/20 01:29 98.4 F 63 16 109/65 96 10/14/20 21:46 18 10/14/20 21:10 98 F 65 20 129/62 95 10/14/20 20:35 98.2 F 65 18 111/48 96 10/14/20 18:55 64 18 138/65 96 10/14/20 18:05 71 18 121/56 96 10/14/20 16:28 66 18 130/81 97 10/14/20 14:56 98.3 F 72 18 134/64 96 Intake and Output 10/14/20 10/15/20 10/15/20 22:59 06:59 14:59 Intake Total 1050 Balance 1050 Intake: Intake, IV Titration 750 Amount Sodium Chloride 0.9% 1, 750 000 ml @ 75 mls/hr IV . [id number] [facility] Rx#:[id number] Oral 300 Other: Voiding Method Indwelling Catheter Weight 70.307 kg GENERAL: The patient is lying in bed and is not in acute distress. CHEST: The heart rate is regular rate rhythm. No murmurs to auscultation. LUNG: Clear to auscultation bilaterally no wheezing noted throughout. Not labored breathing. ABDOMEN/GI: Bowel sounds present in all 4 quadrants. No tenderness to palpation throughout. NEUROLOGICAL: Higher mental function: The patient is awake, alert, oriented to self, place and time. Patient is following commands. No aphasia and no neglect. Cranial nerves: The pupils are round, equal and reactive to light and accommodation. Visual romo are full to confrontation throughout. Extraocular movement is intact no nystagmus is noted. Facial sensation is normal to touch throughout. The facial strength is normal throughout. Hearing is normal bi laterally to hand rub. Tongue is midline and moved [id number] without any difficulty. No dysarthria is noted. Shoulder shrug is normal bilaterally. Motor: Gait was attempted but patient stated not at this time. The strength is 5-/5 bilateral hand driver/sales workers, proximal upper extremities was 5-/5 but limited because of shoulder pain. Lower extremities are 4+ to 5-/5 throughout except ankles are 5/5 but somewhat limited because of pelvic pain. Normal tone and bulk. Cerebellum: Normal finger to nose heel to nicholson bilaterally. Sensation: Sensation is normal to touch and pinprick throughout (I tested it twice and she stated feels about the same). Reflexes (right/left):Patellar are 3+ bilaterally, ankles are 1+ bilaterally. Rest are 2+. Plantars are downgoing bilaterally. Results Regulation study: PT is 25.6, INR 2.6 and PTT is 33.4. Slade virus PCR was not detected. - Laboratory Findings CBC and BMP: 10/14/20 15:44 10/14/20 15:44 Abnormal Lab Findings: Abnormal Labs 10/14/20 10/14/20 15:44 15:44 PT 25.6 H INR 2.6 H APTT 33.4 H BUN 20 H AST 41 H Assessment and Plan Assessment: This is a 70-year-old woman with history of left lung cancer who underwent radiation chemotherapy who presents with lower extremity weakness for the past one month that progressively getting worse with 2-3 month history of bowel incontinence and periananl paresthesia Lower extremity weakness with bowel incontinence, pelvic pain and paresthesia is concerning for conus medullaris vs cauda equina syndrome vs metastatis from lung cancer History of left lung cancer and underwent the radiation and chemotherapy completed and April 2020 Hypertension Hyperlipidemia History of coronary artery disease s/p stent History of clot and on coumadin Plan: CT thorax lumbar without contrast is reported as no acute finding evident in the thoracic or lumbar spine. In the body of the report it is reported as slight grade 1 anterior lithiasis of L3 and L4. There is mild to moderate multilevel anterior lateral spurring greater in the mid to lower thoracic spine. Lumbar spine shows vacuum disc phenomenon at multiple level with fairly mild to moderate disc space narrowing. Pelvic x-ray is reported as degenerative disc disease at. Postoperative change at. TSH is 2.92 which is normal. Calcium is 9.2. I ordered hemoglobin A1c and vitamin B12 level, folate level. I ordered MRI of lumbar and pelvis (STAT) and thoracic (urgent). Physical therapy and occupation therapy are consulted. Recommend consulting oncology team. The plan is discussed with the patient and her nurse. Thank you for the consultation. Aramis Jenkins M.D. Neuro-hospitalist Time with Patient: Greater than 30
[2020-10-15 16:24] LABS: Hemoglobin A1C 5.6 % (4.0-6.0)
[2020-10-15 19:00] LABS: INR 2.61 (0.90-1.11); Prothrombin Time 26.7 sec (9.9-11.9)
[2020-10-15] MEDS ORDERED: WARFARIN 5 MG TAB PO ONE (20:00)
[2020-10-16] MEDS: ATORVASTATIN 40 MG TAB PO SCH (08:23)
[2020-10-16] MEDS: FLUoxetine HCL 20 MG CAP PO SCH (08:23)
[2020-10-16] MEDS: PANTOPRAZOLE 40 MG TABLET PO SCH (08:23)
[2020-10-16] MEDS: FENOFIBRATE 160 MG TAB PO SCH (08:23)
[2020-10-16] MEDS: amLODIPine 5 MG TAB PO SCH (08:23)
[2020-10-16] MEDS: FAMOTIDINE 20 MG TAB PO SCH (08:23)
[2020-10-16] MEDS: LOSARTAN 25 MG TAB PO SCH (08:23)
--- NOTE | 2020-10-16 10:44 | P.HPIM ---
History of Present Illness H&P Date: 10/15/20 Chief Complaint: Extremity weakness 70-year-old woman with medical history of coronary artery disease s/p stent, hypertension, hyperlipidemia, left lung cancer status (01/2020) underwent chemo and radiation that presented to the emergency department for lower extremity weakness. She said she has been having lower extremity weakness for the past one month; it has progressively been getting worse but denies any falls. She noticed she could not ambulate yesterday. She also has been having pain in proximal thighs and pelvic pain in the last couple weeks. She has been having bowel incontinence and feels she has loss sensation of her urine for the past 2- 3 months. She reported to the ED that she has lower back pain but for me it was more pelvic and proximal thigh pain. She denies of any paresthesia of lower extremities or paresthesia that started in feet and ascended up. She feels her upper extremity are somewhat weak in last few weeks but not as compared to legs. She denies of visual disturbance, difficulty getting her words out, dysphagia. Patient has history of lung cancer and underwent radiation chemotherapy which ended in April 2020. Patient has been seeing an oncologist in [facility] (Ryan whitlock). Workup in ED including CT thorax lumbar without contrast is reported as no acute finding evident in the thoracic or lumbar spine; slight grade 1 anterior lithiasis of L3 and L4. There is mild to moderate multilevel anterior lateral spurring greater in the mid to lower thoracic spine. Lumbar spine shows vacuum disc phenomenon at multiple level with fairly mild to moderate disc space narrowing. Also there is with scarlike nodularity in the left lung should be correlated with a history, suspected history of left sided lung cancer. Pelvic x-ray is reported as degenerative disc disease; Chest x-ray is reported as there may be central mass causing some postobstructive atelectasis in the left upper lobe similar to prior exam, correlate to exclude pneumonia. White blood cells 5.3; Sodium is 140. Potassium 4.2; BUN is 20 and creatinine is 0.9; AST is 41 which is slightly elevated and ALT is 13; TSH is 2.92 which is normal. Calcium is 9.2. Review of Systems REVIEW OF SYSTEMS: CONSTITUTIONAL: No fever, no malaise, no fatigue. HEENT: No recent visual problems or hearing problems. Denied any sore throat. CARDIOVASCULAR: No chest pain, orthopnea, PND, no palpitations, no syncope. PULMONARY: No shortness of breath, no cough, no hemoptysis. GASTROINTESTINAL: No diarrhea, no nausea, no vomiting, no abdominal pain. NEUROLOGICAL: No headaches, no weakness, no numbness. HEMATOLOGICAL: Denies any bleeding or petechiae. GENITOURINARY: Denies any burning micturition, frequency, or urgency. MUSCULOSKELETAL/RHEUMATOLOGICAL: Denies any joint pain, swelling, or any muscle pain. ENDOCRINE: Denies any polyuria or polydipsia. The rest of the 14-point review of systems is negative. Past Medical History Past Medical History: Coronary Artery Disease (CAD), Cancer, COPD, Hyperlipidemia, Hypertension Additional Past Medical History / Comment(s): lung CA on chemo and radiation History of Any Multi-Drug Resistant Organisms: None Reported Past Surgical History: Appendectomy, Cholecystectomy, Heart Catheterization With Stent, Hysterectomy, Tonsillectomy Past Anesthesia/Blood Transfusion Reactions: No Reported Reaction Date of Last Stent Placement:: 2008 Past Psychological History: Anxiety, Depression Smoking Status: Current every day smoker Past Alcohol Use History: None Reported Past Drug Use History: None Reported Medications and Allergies Home Medications Medication Instructions Recorded Confirmed Type ALPRAZolam [Xanax] 0.25 - 0.5 mg PO BID PRN 03/01/20 10/14/20 History Atorvastatin [Lipitor] 40 mg PO DAILY 03/01/20 10/14/20 History FLUoxetine HCL [PROzac] 40 mg PO DAILY 03/01/20 10/14/20 History Famotidine [Pepcid] 20 mg PO BID 03/01/20 10/14/20 History Losartan Potassium [Cozaar] 25 mg PO DAILY 03/01/20 10/14/20 History Pantoprazole Sodium [Protonix] 40 mg PO DAILY 03/01/20 10/14/20 History Warfarin [Coumadin] 5 - 10 mg PO DIRECTED 03/01/20 10/14/20 History amLODIPine [Norvasc] 5 mg PO DAILY 03/01/20 10/14/20 History gemfibroziL [Lopid] 600 mg PO BID 03/01/20 10/14/20 History HYDROcodone/APAP 5-325MG [[place] 1 tab PO TID PRN 10/14/20 10/14/20 History 5-325] Methocarbamol [Robaxin-750] 750 mg PO Q6H PRN 10/14/20 10/14/20 History Allergies Allergy/AdvReac Type Severity Reaction Status Date / Time ciprofloxacin [From Cipro] Allergy Anaphylaxis Verified 10/14/20 17:30 levofloxacin [From Levaquin] Allergy Anaphylaxis Verified 10/14/20 17:30 codeine AdvReac Nausea & Verified 10/14/20 17:30 Vomiting lisinopril AdvReac Anaphylaxis Verified 10/14/20 17:30 Physical Exam Vitals: Vital Signs Temp Pulse Pulse Resp BP BP Pulse Ox 10/15/20 01:29 98.4 F 63 16 109/65 96 10/14/20 21:46 18 10/14/20 21:10 98 F 65 20 129/62 95 10/14/20 20:35 98.2 F 65 18 111/48 96 10/14/20 18:55 64 18 138/65 96 10/14/20 18:05 71 18 121/56 96 10/14/20 16:28 66 18 130/81 97 10/14/20 14:56 98.3 F 72 18 134/64 96 Intake and Output 10/14/20 10/15/20 10/15/20 22:59 06:59 14:59 Intake Total 1050 Balance 1050 Intake: Intake, IV Titration 750 Amount Sodium Chloride 0.9% 1, 750 000 ml @ 75 mls/hr IV . [id number] [facility] Rx#:[id number] Oral 300 Other: Voiding Method Indwelling Catheter Weight 70.307 kg - Constitutional General appearance: Present: average body habitus, cooperative, no acute distress Eyes: Present: anicteric sclerae, EOMI, PERRLA, normal appearance ENT: Present: hearing grossly normal, normal oropharynx Ears: bilateral: normal Neck: Present: normal ROM. Absent: lymphadenopathy, rigidity, thyromegaly Carotids: negative: bruit present Thyroid: bilateral: normal size, negative: enlarged, nodule Respiratory: bilateral: CTA, negative: rales, rhonchi, wheezing Abnormal Heart Sounds: Absent: Absent systolic or diastolic murmur General gastrointestinal: Present: normal bowel sounds, soft. Absent: distended, organomegaly, tenderness Genitourinary Comment(s): deferred Integumentary: Present: normal turgor. Absent: jaundiced, rash, ulcer Neurologic: Present: CNII-XII intact. Absent: focal deficits Musculoskeletal: Present: gait normal, strength equal bilaterally Psychiatric: Present: A&O x's 3, appropriate affect, intact judgment & insight Results CBC & Chem 7: 10/14/20 15:44 10/14/20 15:44 Labs: Abnormal Lab Results - Last 24 Hours (Table) 10/14/20 10/14/20 Range/Units 15:44 15:44 PT 25.6 H (9.0-12.0) sec INR 2.6 H (<1.2) APTT 33.4 H (22.0-30.0) sec BUN 20 H (7-17) mg/dL AST 41 H (14-36) U/L Thrombosis Risk Factor Assmnt - Choose All That Apply Each Risk Factor Represents 2 Points: Age 61-74 years Thrombosis Risk Factor Assessment Total Risk Factor Score: 2 Thrombosis Risk Factor Assessment Level: Low Risk Assessment and Plan Assessment: 1. Lower extremity weakness with bowel incontinence; - pelvic pain and paresthesia; possible concerning for conus medullaris vs cauda equina syndrome vs metastatis from lung cancer - Neurology on board and recommending MRI of thoracic, lumbar and pelvic spine - Vitamin B12, folate and A1c ordered; TSH is normal - PT/OT are consulted 2. Hypertension; losartan 25 mg daily; amlodipine 5 mg daily 3. Hyperlipidemia; Lipitor 40 mg by mouth daily at bedtime 4. History of DVT; remains on anticoagulation with Coumadin 5. CAD; status post stent placement 6. Depression/anxiety; continue with home dose of Xanax, Prozac 40 mg daily DVT prophylaxis; SCDs/systemic anticoagulation CODE STATUS; full code
[2020-10-16 11:12] LABS: INR 1.95 (0.90-1.11); Prothrombin Time 20.3 sec (9.9-11.9)
[2020-10-16] MEDS ORDERED: DOCUSATE 100 MG CAP PO PRN (14:37)
--- NOTE | 2020-10-16 16:02 | P.PN ---
Subjective Progress Note Date: 10/16/20 I saw the patient at bedside and she feels about the same today compared to yesterday. Regarding MRI per the nurse there is still trying to get paperwork that will clear her for MRI since has port. Upon seeing her today, she was accompanied with her daughter and the daughter (Rey) stated she has all the paperwork for port and then we sent the paperwork down for MRI and they stated it they have filled schedule and if they got to her will have only some of the images but not all we requested. Objective - Vital Signs Vital signs: Vital Signs Temp 98.5 F 10/16/20 13:55 Pulse 77 10/16/20 13:55 Resp 18 10/16/20 13:55 BP 127/62 10/16/20 13:55 Pulse Ox 93 L 10/16/20 13:55 Intake & Output 10/15/20 10/16/20 10/16/20 18:59 06:59 18:59 Intake Total 500 Output Total 600 1000 Balance -100 -1000 Intake: Intake, IV Titration 500 Amount Sodium Chloride 0.9% 1, 500 000 ml @ 75 mls/hr IV . [id number] [facility] Rx#:[id number] Output: Urine 600 1000 Other: Voiding Method Indwelling Catheter Indwelling Catheter Indwelling Catheter - Exam GENERAL: The patient is lying in bed and is not in acute distress. NEUROLOGICAL: Higher mental function: The patient is awake, alert, oriented to self, place and time. Patient is following commands. No aphasia and no neglect. Cranial nerves: The pupils are round, equal and reactive to light and accommodation. Visual romo are full to confrontation throughout. Extraocular movement is intact no nystagmus is noted. Facial sensation is normal to touch throughout. The facial strength is normal throughout. Hearing is normal bilaterally to hand rub. Tongue is midline and moved [id number] without any difficulty. No dysarthria is noted. Shoulder shrug is normal bilaterally. Motor: Gait was deferred. The strength is 5-/5 bilateral hand barber, proximal upper extremities was 5-/5 but limited because of shoulder pain. Lower extremities are 4+ over the right lower proximal extremity but limited because of her thigh/hip pain while distal is 5/5. While left is 5/5. Normal tone and bulk. Cerebellum: Normal finger to nose heel to nicholson bilaterally. Sensation: Sensation is normal to touch and pinprick throughout (I tested it twice and she stated feels about the same). Reflexes (right/left):Patellar are 3+ bilaterally, ankles are 1+ bilaterally. Rest are 2+. Plantars are downgoing bilaterally. - Labs CBC & Chem 7: 10/14/20 15:44 10/14/20 15:44 Labs: Abnormal Lab Results - Last 24 Hours (Table) 10/15/20 10/15/20 10/16/20 Range/Units 08:25 08:25 07:29 PT 26.7 H 20.3 H (9.9-11.9) sec INR 2.61 H 1.95 H (0.90-1.11) RBC Folate 852 H (280 - 791) ng/mL Assessment and Plan Assessment: This is a 70-year-old woman with history of left lung cancer who underwent radiation chemotherapy who presents with lower extremity weakness for the past one month that progressively getting worse with 2-3 month history of bowel incontinence, urinary retention and periananl paresthesia Lower extremity weakness with bowel incontinence, pelvic pain and paresthesia is concerning for metastatis from lung cancer vs conus medullaris vs cauda equina syndrome History of left lung cancer and underwent the radiation and chemotherapy completed and April 2020 Hypertension Hyperlipidemia History of coronary artery disease s/p stent History of clot and on coumadin Plan: CT thorax lumbar without contrast is reported as no acute finding evident in the thoracic or lumbar spine. In the body of the report it is reported as slight grade 1 anterior lithiasis of L3 and L4. There is mild to moderate multilevel anterior lateral spurring greater in the mid to lower thoracic spine. Lumbar spine shows vacuum disc phenomenon at multiple level with fairly mild to moderate disc space narrowing. Pelvic x-ray is reported as degenerative disc disease at. Postoperative change at. TSH is 2.92 which is normal. Calcium is 9.2. hemoglobin A1c: 5.6 (considered normal) and vitamin B12 level: 497 (normal), folate level: 825 (considered normal) I ordered MRI of lumbar and pelvis (STAT) and thoracic (urgent) and pending paper work for clearance of MRI. After getting clearance for MRI was told it would be tough to get MRI today and if done today will not have all testing. Physical therapy and occupation therapy are consulted. Recommend consulting oncology team. Since her condition is emergent, I would like the patient to be transferred to a facility that has neurosurgeon and to get the MRI's stat. I highly recommend that she's transferred and recommend neurology, neurosurgeon and oncology on board. The plan is discussed with the patient, primary team and her nurse. Aramis Jenkins M.D. Neuro-hospitalist Time with Patient: Less than 30
[2020-10-16] MEDS ORDERED: WARFARIN 5 MG TAB PO ONE (18:00)
[2020-10-16 20:11] VITALS: BP 127/63; PULSE 66; RESP 16; TEMP 98.1
[2020-10-16] MEDS ORDERED: SENNOSIDES 8.6 MG TAB PO SCH (21:00)
[2020-10-17] MEDS ORDERED: polyethylene glycoL 3350 17 GM POWD.PACK PO SCH (09:00)
--- NOTE | 2020-10-17 12:06 | P.CONS ---
History of Present Illness - Reason for Consult Consult date: 10/16/20 History of Lung cancer Requesting physician: Adalgisa Ruiz - Chief Complaint Unable to controll bowels or bladder and loss of movement LE - History of Present Illness Patient apparently has a history of lung cancer and underwent treatment for this. Patient and daughter are unaware of stage. Treatment in [place] at 21 [facility] ([facility] this [facility]). In June 2020 was told she is cancer free. She has not follow-up since Patients daughter states this has been going on a month but her mom is too stubborn. This is the first medical attention received for this complaint per daughter. Review of Systems All systems: negative Constitutional: Reports as per HPI Past Medical History Past Medical History: Coronary Artery Disease (CAD), Cancer, COPD, Hyp erlipidemia, Hypertension Additional Past Medical History / Comment(s): lung CA on chemo and radiation History of Any Multi-Drug Resistant Organisms: None Reported Past Surgical History: Appendectomy, Cholecystectomy, Heart Catheterization With Stent, Hysterectomy, Tonsillectomy Past Anesthesia/Blood Transfusion Reactions: No Reported Reaction Date of Last Stent Placement:: 2008 Past Psychological History: Anxiety, Depression Smoking Status: Current every day smoker Past Alcohol Use History: None Reported Past Drug Use History: None Reported Medications and Allergies Home Medications Medication Instructions Recorded Confirmed Type ALPRAZolam [Xanax] 0.25 - 0.5 mg PO BID PRN 03/01/20 10/14/20 History Atorvastatin [Lipitor] 40 mg PO DAILY 03/01/20 10/14/20 History FLUoxetine HCL [PROzac] 40 mg PO DAILY 03/01/20 10/14/20 History Famotidine [Pepcid] 20 mg PO BID 03/01/20 10/14/20 History Losartan Potassium [Cozaar] 25 mg PO DAILY 03/01/20 10/14/20 History Pantoprazole Sodium [Protonix] 40 mg PO DAILY 03/01/20 10/14/20 History Warfarin [Coumadin] 5 - 10 mg PO DIRECTED 03/01/20 10/14/20 History amLODIPine [Norvasc] 5 mg PO DAILY 03/01/20 10/14/20 History gemfibroziL [Lopid] 600 mg PO BID 03/01/20 10/14/20 History HYDROcodone/APAP 5-325MG [[place] 1 tab PO TID PRN 10/14/20 10/14/20 History 5-325] Methocarbamol [Robaxin-750] 750 mg PO Q6H PRN 10/14/20 10/14/20 History Allergies Allergy/AdvReac Type Severity Reaction Status Date / Time ciprofloxacin [From Cipro] Allergy Anaphylaxis Verified 10/14/20 17:30 levofloxacin [From Levaquin] Allergy Anaphylaxis Verified 10/14/20 17:30 codeine AdvReac Nausea & Verified 10/14/20 17:30 Vomiting lisinopril AdvReac Anaphylaxis Verified 10/14/20 17:30 Physical Exam Vitals: Vital Signs Temp Pulse Resp BP Pulse Ox 10/16/20 19:35 98.1 F 66 16 127/63 94 L 10/16/20 13:55 98.5 F 77 18 127/62 93 L Intake and Output 10/16/20 10/17/20 10/17/20 22:59 06:59 14:59 Intake Total 500 Output Total 1000 Balance -500 Intake: Oral 500 Output: Urine 1000 - Constitutional General appearance: cooperative, no acute distress - EENT Eyes: EOMI ENT: hard of hearing, NA/AT - Respiratory Respiratory: bilateral: diminished - Cardiovascular Rhythm: regularly irregular - Gastrointestinal General gastrointestinal: soft - Integumentary Integumentary: pale - Neurologic Unable to feel sensation bowels bladder touching, weak and unable to move bilateral lower legs. - Psychiatric Psychiatric: A&O x's 3 Results CBC & Chem 7: 10/14/20 15:44 10/14/20 15:44 Labs: Abnormal Lab Results - Last 24 Hours (Table) 10/15/20 Range/Units 08:25 RBC Folate 852 H (280 - 791) ng/mL Comments: CT Thoracic spine Assessment and Plan Plan: Assessment and Plan: Patient apparently has a history of lung cancer and underwent treatment for this. Patient and daughter are unaware of stage. Treatment in [place] at [address] [facility] ([facility] this [facility]). In June 2020 was told she is cancer free. 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 Neurology at bedside during initial assessment and plan to transfer to neuro surgery for further evaluation. She will follow-up with us [facility]
--- NOTE | 2020-10-30 07:56 | P.DS ---
Providers Date of admission: 10/14/20 18:06 Attending physician: Adele Alfaro Consults: 10/14/20 18:06 Consult Physician Stat Consulting Provider: Aramis Jenkins Consult Reason/Comments: LE weakness Do you want consulting provider notified?: Yes 10/16/20 12:58 Consult Physician Urgent Consulting Provider: Jere Hamlin Consult Reason/Comments: back pain/ LE weakness/ CA lung Do you want consulting provider notified?: Yes Primary care physician: [facility] Hospital Course: 70-year-old woman with history of left lung cancer who underwent radiation chemotherapy who presents with lower extremity weakness for the past one month that progressively getting worse with 2-3 month history of bowel incontinence, urinary retention and periananl paresthesia Lower extremity weakness with bowel incontinence, pelvic pain and paresthesia is concerning for metastatis from lung cancer vs conus medullaris vs cauda equina syndrome History of left lung cancer and underwent the radiation and chemotherapy co and April 2020 Hypertension Hyperlipidemia History of coronary artery disease s/p stent History of clot and on coumadin CT thorax lumbar without contrast is reported as no acute finding evident in the thoracic or lumbar spine. In the body of the report it is reported as slight grade 1 anterior lithiasis of L3 and L4. There is mild to moderate multilevel anterior lateral spurring greater in the mid to lower thoracic spine. Lumbar spine shows vacuum disc phenomenon at multiple level with fairly mild to moderate disc space narrowing. Pelvic x-ray is reported as degenerative disc disease at. Postoperative change at. TSH is 2.92 which is normal. Calcium is 9.2. hemoglobin A1c: 5.6 (considered normal) and vitamin B12 level: 497 (normal), folate level: 825 (considered normal) I ordered MRI of lumbar and pelvis (STAT) and thoracic (urgent) and pending paper work for clearance of MRI. After getting clearance for MRI was told it would be tough to get MRI today and if done today will not have all testing. Physical therapy and occupation therapy are consulted. Recommend consulting oncology team. Since her condition is emergent, Neurology would like the patient to be transferred to a facility that has neurosurgeon and to get the MRI's stat; highly recommend that she's transferred and recommend neurology, neurosurgeon and oncology on board. Renetta Sánchez was contacted and patient was transferred for further evaluation and treatment Patient Condition at Discharge: Fair Plan - Discharge Summary Discharge Rx Participant: No New Discharge Prescriptions: No Action Warfarin [Coumadin] 5 - 10 mg PO DIRECTED Famotidine [Pepcid] 20 mg PO BID FLUoxetine HCL [PROzac] 40 mg PO DAILY amLODIPine [Norvasc] 5 mg PO DAILY Pantoprazole Sodium [Protonix] 40 mg PO DAILY Losartan Potassium [Cozaar] 25 mg PO DAILY gemfibroziL [Lopid] 600 mg PO BID Atorvastatin [Lipitor] 40 mg PO DAILY ALPRAZolam [Xanax] 0.25 - 0.5 mg PO BID PRN PRN Reason: Anxiety HYDROcodone/APAP 5-325MG [[place] 5-325] 1 tab PO TID PRN PRN Reason: Pain Methocarbamol [Robaxin-750] 750 mg PO Q6H PRN PRN Reason: Muscle Spasm Discharge Medication List ALPRAZolam [Xanax] 0.25 - 0.5 mg PO BID PRN 03/01/20 [History] Atorvastatin [Lipitor] 40 mg PO DAILY 03/01/20 [History] FLUoxetine HCL [PROzac] 40 mg PO DAILY 03/01/20 [History] Famotidine [Pepcid] 20 mg PO BID 03/01/20 [History] Losartan Potassium [Cozaar] 25 mg PO DAILY 03/01/20 [History] Pantoprazole Sodium [Protonix] 40 mg PO DAILY 03/01/20 [History] Warfarin [Coumadin] 5 - 10 mg PO DIRECTED 03/01/20 [History] amLODIPine [Norvasc] 5 mg PO DAILY 03/01/20 [History] gemfibroziL [Lopid] 600 mg PO BID 03/01/20 [History] HYDROcodone/APAP 5-325MG [[place] 5-325] 1 tab PO TID PRN 10/14/20 [History] Methocarbamol [Robaxin-750] 750 mg PO Q6H PRN 10/14/20 [History] Follow up Appointment(s)/Referral(s): [facility], [NON-STAFF] - As Needed Randal Leal MD [Primary Care Provider] - 1-2 days Discharge Disposition: TRANSFER TO [facility]
--- NOTE | 2020-10-30 07:57 | P.PN ---
Subjective Progress Note Date: 10/16/20 70-year-old woman with medical history of coronary artery disease s/p stent, hypertension, hyperlipidemia, left lung cancer status (01/2020) underwent chemo and radiation that presented to the emergency department for lower extremity weakness. She said she has been having lower extremity weakness for the past one month; it has progressively been getting worse but denies any falls. She noticed she could not ambulate yesterday. She also has been having pain in proximal thighs and pelvic pain in the last couple weeks. She has been having bowel incontinence and feels she has loss sensation of her urine for the past 2- 3 months. She reported to the ED that she has lower back pain but for me it was more pelvic and proximal thigh pain. She denies of any paresthesia of lower extremities or paresthesia that started in feet and ascended up. She feels her upper extremity are somewhat weak in last few weeks but not as compared to legs. She denies of visual disturbance, difficulty getting her words out, dysphagia. Patient has history of lung cancer and underwent radiation chemotherapy which ended in April 2020. Patient has been seeing an oncologist in [facility] ([facility]). Workup in ED including CT thorax lumbar without contrast is reported as no acute finding evident in the thoracic or lumbar spine; slight grade 1 anterior lithiasis of L3 and L4. There is mild to moderate multilevel anterior lateral spurring greater in the mid to lower thoracic spine. Lumbar spine shows vacuum disc phenomenon at multiple level with fairly mild to moderate disc space narrowing. Also there is with scarlike nodularity in the left lung should be correlated with a history, suspected history of left sided lung cancer. Pelvic x-ray is reported as degenerative disc disease; Chest x-ray is reported as there may be central mass causing some postobstructive atelectasis in the left upper lobe similar to prior exam, correlate to exclude pneumonia. White blood cells 5.3; Sodium is 140. Potassium 4.2; BUN is 20 and creatinine is 0.9; AST is 41 which is slightly elevated and ALT is 13; TSH is 2.92 which is normal. Calcium is 9.2. Objective - Vital Signs Vital signs: Vital Signs Temp 98.7 F 10/16/20 07:13 Pulse 76 10/16/20 07:15 Resp 18 10/16/20 07:15 BP 117/63 10/16/20 07:13 Pulse Ox 92 L 10/16/20 07:13 Intake & Output 10/15/20 10/16/20 10/16/20 18:59 06:59 18:59 Intake Total 500 Output Total 600 1000 Balance -100 -1000 Intake: Intake, IV Titration 500 Amount Sodium Chloride 0.9% 1, 500 000 ml @ 75 mls/hr IV . [id number] STA Rx#:[id number] Output: Urine 600 1000 Other: Voiding Method Indwelling Catheter Indwelling Catheter Indwelling Catheter - Exam - Constitutional General appearance: Present: average body habitus, cooperative, no acute distress Eyes: Present: anicteric sclerae, EOMI, PERRLA, normal appearance ENT: Present: hearing grossly normal, normal oropharynx Ears: bilateral: normal Neck: Present: normal ROM. Absent: lymphadenopathy, rigidity, thyromegaly Carotids: negative: bruit present Thyroid: bilateral: normal size, negative: enlarged, nodule Respiratory: bilateral: CTA, negative: rales, rhonchi, wheezing Abnormal Heart Sounds: Absent: Absent systolic or diastolic murmur General gastrointestinal: Present: normal bowel sounds, soft. Absent: distended, organomegaly, tenderness Genitourinary Comment(s): deferred Integumentary: Present: normal turgor. Absent: jaundiced, rash, ulcer Neurologic: Present: CNII-XII intact. Absent: focal deficits Musculoskeletal: Present: gait normal, strength equal bilaterally Psychiatric: Present: A&O x's 3, appropriate affect, intact judgment & insight - Labs CBC & Chem 7: 10/14/20 15:44 10/14/20 15:44 Labs: Abnormal Lab Results - Last 24 Hours (Table) 10/15/20 Range/Units 08:25 PT 26.7 H (9.9-11.9) sec INR 2.61 H (0.90-1.11) Assessment and Plan Assessment: 1. Lower extremity weakness with bowel incontinence; - pelvic pain and paresthesia; possible concerning for conus medullaris vs cauda equina syndrome vs metastatis from lung cancer - Neurology on board and recommending MRI of thoracic, lumbar and pelvic spine - Vitamin B12, folate and A1c ordered; TSH is normal - PT/OT are consulted 2. Hypertension; losartan 25 mg daily; amlodipine 5 mg daily 3. Hyperlipidemia; Lipitor 40 mg by mouth daily at bedtime 4. History of DVT; remains on anticoagulation with Coumadin 5. CAD; status post stent placement 6. Depression/anxiety; continue with home dose of Xanax, Prozac 40 mg daily DVT prophylaxis; SCDs/systemic anticoagulation CODE STATUS; full code
== END 2020-10-16 20:11 | disposition short-term general hospital (02) | DRG 552 ==
LOC: EC 14:52 → 4SSUR 18:06
PROVIDERS: ADMIT Internal Medicine; ATTEND Internal Medicine
DX: M43.16 Spondylolisthesis, lumbar region (principal); C34.92 Malignant neoplasm of unspecified part of left bronchus or lung; J98.11 Atelectasis; F17.210 Nicotine dependence, cigarettes, uncomplicated; E78.5 Hyperlipidemia, unspecified; F32.9 Major depressive disorder, single episode, unspecified; F41.9 Anxiety disorder, unspecified; I10 Essential (primary) hypertension; I25.10 Atherosclerotic heart disease of native coronary artery without angina pectoris; J44.9 Chronic obstructive pulmonary disease, unspecified; R32 Unspecified urinary incontinence; R15.9 Full incontinence of feces; Z79.01 Long term (current) use of anticoagulants; Z79.899 Other long term (current) drug therapy; Z85.118 Personal history of other malignant neoplasm of bronchus and lung; Z86.718 Personal history of other venous thrombosis and embolism; Z90.710 Acquired absence of both cervix and uterus; Z95.5 Presence of coronary angioplasty implant and graft; Z90.49 Acquired absence of other specified parts of digestive tract; Z20.822 Contact with and (suspected) exposure to COVID-19; Z90.89 Acquired absence of other organs; Z92.21 Personal history of antineoplastic chemotherapy; Z92.3 Personal history of irradiation; Z88.1 Allergy status to other antibiotic agents; Z88.5 Allergy status to narcotic agent; Z88.8 Allergy status to other drugs, medicaments and biological substances; R13.10 Dysphagia, unspecified; H91.90 Unspecified hearing loss, unspecified ear; M77.9 Enthesopathy, unspecified
CPT/HCPCS: 36415; 71046; 72128; 72131; 72170; 80053; 81003; 82607; 82747; 83036; 83735; 84100; 84443; 84484; 85025; 85610; 85730; 87635; 93005; 96361; 96374; 96376; 99285